=== PATIENT | female | born 1965 | race Two or more races ===

== ENCOUNTER 2024-08-30 07:19 | Day surgery (SDC) | payer MEDICAID ==
[~2024-08-30] VITALS: Ht 160 cm; Wt 113.4 kg
[~2024-08-30 07:19] MED LIST: HYDR25TA5 PO; TRAM50TA2 PO
[2024-08-30] MEDS: fentaNYL CITRATE 100 MCG/2 ML VL ONE (08:06)
[2024-08-30] MEDS: MIDAZOLAM HCL 2MG/2ML 2ml VIAL (1mg/ml) ONE (08:06)
[2024-08-30] MEDS: LIDOCAINE VISCOUS 2% 15ML UD PO ONE (08:55)
[2024-08-30] MEDS: MIDAZOLAM HCL 5 MG/ML-1ML VIAL IV ONE (08:56)
[2024-08-30] MEDS: fentaNYL CITRATE 100 MCG/2 ML VL IV ONE (08:56)
[2024-08-30 09:04] VITALS: BP 151/83; PULSE 60; RESP 12; O2SAT 97
[2024-08-30 09:36] VITALS: BP 126/77; PULSE 60; RESP 13; O2SAT 98
[2024-08-30 09:51] VITALS: BP 121/83; PULSE 51; RESP 12; O2SAT 98
[2024-08-30 10:06] VITALS: BP 121/75; PULSE 51; RESP 12; O2SAT 98
[2024-08-30 10:21] VITALS: BP 135/87; PULSE 54; RESP 12; O2SAT 97
[2024-08-30 10:36] VITALS: BP 123/82; PULSE 54; RESP 12; O2SAT 98
[2024-08-30] MEDS: MAALOX PLUS or MAALOX 30 ML PO ONE (11:03)
[2024-08-30] MEDS: FAMOTIDINE (10MG/ML) 2ML VL IV ONE ×2 (11:03→11:06)
[2024-08-30] MEDS: MAALOX PLUS or MAALOX 30 ML ONE (11:05)
== END 2024-08-30 11:30 | disposition home or self-care (01) ==
LOC: CATH 07:19
PROVIDERS: ATTEND Internal Medicine Cardiovascular Disease
DX: R00.2 Palpitations (principal); I34.0 Nonrheumatic mitral (valve) insufficiency; R06.09 Other forms of dyspnea; R06.02 Shortness of breath; I10 Essential (primary) hypertension; J98.4 Other disorders of lung; M06.9 Rheumatoid arthritis, unspecified; E66.9 Obesity, unspecified; Z68.41 Body mass index [BMI] 40.0-44.9, adult; Z88.0 Allergy status to penicillin; Z88.5 Allergy status to narcotic agent; Z88.8 Allergy status to other drugs, medicaments and biological substances
CPT/HCPCS: 93312; 93325; J2250; J3010; J3490; J7030; 99152